=== PATIENT | female | born 1975 | race Caucasian/White ===

== ENCOUNTER 2016-09-27 15:00 | Emergency (ER) | payer OTHER ==
[~2016-09-27] VITALS: Ht 177.8 cm; Wt 88.6 kg
[2016-09-27 15:09] VITALS: BP 126/79; PULSE 82; RESP 18; O2SAT 99
[2016-09-27] MEDS ORDERED: CITA20TA PO (15:13)
[2016-09-27] MEDS ORDERED: NORG1TAB78 PO (15:13)
--- NOTE | 2016-09-27 15:42 | ED.REPORT ---
HPI-Psychiatric Illness Date of Service Sep 27, 2016 ED Provider: 41 y/o female with hx of highly functioning autism presents to the ED complaining of depression, onset a few weeks ago. As per the pt's step sister the pt is suicidal but the pt denies it. Associated sx include destructive behavior. She has been breaking her personal belongings. The pt states she has been depressed lately because she is going through a lot of transitions. She states " I know something is wrong but not able to put label on it" . She denies homicidal and suicidal ideation. The pt reports feeling safe overall. She has also been seeing a psychiatrist. Nursing Notes Stated Complaint: EXTREME DEPRESSION/ANGER Chief Complaint: Psychiatric Complaint Nursing Notes Reviewed: Yes Allergies: Coded Allergies: No Known Allergies (Unverified , 09/27/16) Scheduled Citalopram Hydrobromide (Celexa) 20 Mg Tablet 30 MG PO DAILY Norgestimate-Ethinyl Estradiol ([place]-Linyah) 1 Each Tablet 1 EACH PO DAILY General Time Seen by MD: 15:42 Chief Complaint Depressed Hx Obtained From: Patient Arrived By: Walk-in Onset Occurred: More than a week ago... (2 weeks) Symptom Duration: Since onset Severity: Current: No pain currently Severity: Maximum: No pain Recent Healthcare: No recent doctor visit Similar Sx Previous: Yes Risk-Psychiatric Illness Suicide Risk Stratification Suicide Risk Factors - Adult: : Previous attempt RF Statements: Risk factors reviewed Past Medical History Past Medical History Highly functioning autism Suicide attempt (2000) Reports: Depression Past Surgical History Reports: Cholecystectomy Smoking History Never Smoker Social History Alcohol Use: Denies alcohol use Other Social History: Good social support Ambulatory Status Independent Review of Systems Reports: Destructive behavior Psychiatric: Reports: Change mental status, Depression, Denies: Homicidal ideation, Suicidal ideation Complete sys rev & neg: except as marked. Physical Exam Initial Vital Signs Vital Signs (First) Date Time Temp Pulse Resp B/P Pulse Ox O2 Delivery O2 Flow Rate FiO2 09/27/16 15:09 36.6 82 18 126/79 99 Room Air Initial VS: Reviewed Head / Eyes: Atraumatic, Normocephalic Neck: Supple, Non-tender, Full range of motion Respiratory: Breath sounds normal, No respiratory distress Cardiovascular: Regular rate & rhythm, Heart sounds normal Extremities: Vascular intact, Neuro intact, No swelling, No tenderness Skin: Warm, Dry, No cyanosis General/Constitutional: Awake, Alert, Cooperative Behavior: Positive: Tearful Neurologic: Oriented X3, Speech NL, No motor deficits, No sensory deficits Psychiatric: Affect NL, Not suicidal, Not homicidal, Thought content NL Good eye contact. contracts for safety Interpretation & Diagnostics Lab Results Interpretation Test 09/27/16 16:37 Hold Urine Received (Received) Lab Results Interpretation: Test positive Re-Eval/Medical Decision Med Decision/Clinical Course Patient presents overwhelmed and depressed without reported suicidal thoughts or suicide attempt. She is not imminently at risk of harm to herself or others she is not gravely disabled. I see no indication for involuntary residential. She has good social support, she has an outpatient provider. Social work has seen the patient and agrees with discharge planning. Additionally, incidentally, this patient has a positive urine test without signs or symptoms of a complication related to early . Recommend routine outpatient follow-up and return precautions given. Re-Evaluation/Progress #1: Time of Eval: 15:59 Re-Evaluation/Progress Note: Discussed the case with social worker masters, Trudy, who will see the patient. Re-Evaluation/Progress #2: Time of Eval: 17:00 Re-Evaluation/Progress Note: Rechecked pt. Informed her the test was positive. The pt states her last menstruation cycle was in mid july. Discussed diagnosis and plan to discharge. Pt understands and agrees with plan. F/U instructions and RTER warning given. All questions addressed. Counseled Regarding: Diagnosis, Lab results, Need for follow-up, When/why to return to ED Discharge & Departure Impression: Primary Impression: Depression )( Condition at Discharge: No suicidal ideation, No homicidal ideation Disposition: Home Discharge Condition All VS Reviewed: Yes Condition: Stable Additional Instructions: Use the social work resources provided. Incidentally, you are also . Follow-up with [facility] or your primary care doctor or [facility] regarding this. Return to the ER at any point if you feel overwhelmed, suicidal, or have other concerns Referrals: Shira Etienne MD, Taras P MD Scribe Attestation Portions of this note were transcribed by Inderjit Bell. I, , personally performed the history, physical exam and medical decision-making;I reviewed and confirmed the accuracy of the information in the transcribed note. Signed by Char Johnson. 09/27/16 16:52 copies to: Shira Etienne MD; Devon aSntana MD, Timothy S DO Sep 27, 2016 15:42 Inderjit Bell Sep 27, 2016 15:52
[2016-09-27 18:58] VITALS: BP 117/78; PULSE 90; RESP 18; O2SAT 100
== END 2016-09-27 19:10 | disposition home or self-care (01) ==
LOC: SED 15:00
DX: F32.9 Major depressive disorder, single episode, unspecified (principal); Z33.1 Pregnant state, incidental; F84.0 Autistic disorder